=== PATIENT | female | born 1955 | race African-American/Black ===

== ENCOUNTER 2021-12-22 10:09 | Outpatient (CLI) | payer MEDICARE | END 2021-12-22 10:10 | disposition home or self-care (01) | LOC: CSHRAD 10:09 | PROVIDERS: ATTEND Family Medicine | DX: M25.642 Stiffness of left hand, not elsewhere classified (principal); M25.641 Stiffness of right hand, not elsewhere classified; M54.31 Sciatica, right side; M16.11 Unilateral primary osteoarthritis, right hip ==

== ENCOUNTER 2022-07-14 08:43 | Day surgery (SDC) | payer OTHER, MEDICAID ==
[2022-07-12 13:17] VITALS: BMI 27.4
[2022-07-14] MEDS ORDERED: Bupivacaine PF 0.5% 30 ML VIAL ONE (11:32)
[2022-07-14] MEDS ORDERED: PROPOFOL 20 ML ONE (11:55)
[2022-07-14] MEDS ORDERED: Fentanyl 100 MCG/2 ML VIAL ONE (11:56)
[2022-07-14] MEDS ORDERED: CEFAZOLIN 2 GM VIAL ONE (12:15)
[2022-07-14] MEDS ORDERED: ePHEDrine Sulfate 50 MG/10 ML VIAL ONE (12:29)
[2022-07-14] MEDS ORDERED: Ondansetron PF 4 MG/2 ML Vial ONE (13:27)
== END 2022-07-14 14:55 | disposition home or self-care (01) ==
LOC: CSHSDC 08:43
PROVIDERS: ATTEND Podiatrist Foot & Ankle Surgery
PROC: 0SGN04Z Fusion of Left Metatarsal-Phalangeal Joint with Internal Fixation Device, Open Approach (ICD-10-PCS; principal; 2022-07-14)
DX: M20.12 Hallux valgus (acquired), left foot (principal); M21.612 Bunion of left foot; I10 Essential (primary) hypertension; G89.29 Other chronic pain; D18.09 Hemangioma of other sites; M54.31 Sciatica, right side; M53.3 Sacrococcygeal disorders, not elsewhere classified; Z87.891 Personal history of nicotine dependence; Z79.82 Long term (current) use of aspirin; Z79.899 Other long term (current) drug therapy
CPT/HCPCS: 28750; 73620; C1713 ×8; J2405; J2704; J3010; S0020